=== PATIENT | female | born 1935 | race Caucasian/White ===

== ENCOUNTER → 2017-01-18 | Day surgery (SDC) | payer OTHER ==
[~2017-01-18] MED LIST: LACTATED RINGER'S 1000 ML INJ 1,000 ML ONE; LIDOCAINE 1%/EPINEPHrine 1:100,000 SOLN 20 ML VIAL ONE; ONDANSETRON HCL 4 MG/2 ML VIAL IV PUSH ONE; PROPOFOL 500 MG/50 ML BTL IV ONE; ceFAZolin INJ 1,000 MG VIAL ONE
--- NOTE | 2017-01-18 15:55 | TN ---
cc: ALONDRA HALL M.D., DAVID G. M.D. DATE OF SURGERY: 01/18/2017 PREOPERATIVE DIAGNOSIS Ductal carcinoma in situ right breast, epidermal inclusion cyst right breast. POSTOPERATIVE DIAGNOSES Ductal carcinoma in situ right breast, epidermal inclusion cyst right breast. PROCEDURE Excision right breast epidermal inclusion cyst 1 cm diameter, with two layer closure. Right breast needle localized lumpectomy, hidden scar technique. SURGEON Dr. Harry Pike ANESTHESIA: General, TIVA, plus 1% lidocaine with epinephrine. INDICATIONS This is a very pleasant 81-year-old woman who was sent to me in consultation by Dr. Hall for evaluation of ductal carcinoma in situ of the right breast. Stereotactic biopsy demonstrated DCIS with comedo necrosis. She was desirous of lumpectomy and decline the opportunity have a sentinel lymph node biopsy. She incidentally had a 1 cm palpable epidermal inclusion cyst in the upper inner right breast that she wished to have excised. INTRAOPERATIVE FINDINGS Epidermal inclusion cyst excised in its entirety and sent to pathology. Right breast lumpectomy specimen sent to imaging where Dr. Espinosa indicated the clip was in the center of the specimen and the specimen was sent to pathology. ESTIMATED BLOOD LOSS: Less than 5 mL DESCRIPTION OF PROCEDURE IN DETAIL The patient identified as Dorothea Myers, taken to the operating room, placed in supine position, following localization of needle of the right breast. Sequential compression devices were placed on bilateral lower extremities. Following induction of adequate IV sedation anesthesia the patient's right breast was prepped and draped in the usual sterile fashion with Betadine. A time-out procedure was performed. Following completion of time-out procedure to everyone's satisfaction within the room, proposed small elliptical incision around the epidermal inclusion cyst was made with a marking pen. Additionally a proposed incision along the medial periareolar edge was made with a marking pen. Local anesthetic was placed and the elliptical incision was carried out with scalpel. The tissue was removed in its entirety using the scalpel. Small bleeding points controlled with electrocautery. The wound was closed in two layers with 3-0 Vicryl and 4-0 Monocryl, and dressed with Mastisol half inch brown Steri-Strips and a Tegaderm with Telfa. Attention was then turned to the needle localized lumpectomy. Local anesthetic was placed beneath the periareolar incision and around the area of proposed dissection. Incision was carried out with scalpel and hemostasis controlled with electrocautery. Dissection continued down into the breast tissue and then towards the localization needle medially which was divided to the level of the skin brought into the surgical wound. A cylinder of tissue around the localization needle was then excised from surrounding breast tissue all way beyond the localization needle tip. The specimen was removed in its entirety, marked with a short stitch superior anterior and a long stitch lateral posterior, sent to imaging and then to pathology with the above mentioned results. The wound was irrigated copiously with saline. Small bleeding points were controlled with electrocautery. Palpitation demonstrated no palpably abnormal tissue. There was also no visually abnormal tissue within the wound. The wound was approximated with two 3-0 Vicryl sutures. 3-0 Vicryl was then placed in the deep dermis and subcutaneous fatty tissue and skin approximated with 4-0 Monocryl subcuticular sutures. About 8 cc of local anesthetic was placed within the lumpectomy cavity prior to closure. The wound was dressed Mastisol and half inch brown Steri-Strips, gauze and Tegaderm. The patient tolerated the procedure without apparent complication. Sponge, needle and instrument counts correct at the end of the case. MD TERESE Hopper/CELIA /3:00 PM /3:37 PM
== END | disposition home or self-care (01) ==
LOC: ESDC 10:02
PROVIDERS: ATTEND Surgery Trauma Surgery
DX: D05.11 Intraductal carcinoma in situ of right breast (principal); L72.0 Epidermal cyst
CPT/HCPCS: 00400; 19120; 19125; 88304; 88307; J0690; J2405; J3010; J7120; 88361

== ENCOUNTER → 2017-02-13 | Day surgery (SDC) | payer OTHER ==
[~2017-02-13] MED LIST changes: +ceFAZolin 2 GM PREMIX 50 ML ONE; -ceFAZolin INJ 1,000 MG VIAL ONE
--- NOTE | 2017-02-13 10:15 | TN ---
cc: GREGORY ALEJANDRO M.D., DAVID G. M.D. NIEWALD, ANDREW J. M.D. DATE OF SURGERY: 02/13/2017 PREOPERATIVE DIAGNOSIS Right breast ductal carcinoma in situ with close anterior and posterior margins. POSTOPERATIVE DIAGNOSES Right breast ductal carcinoma in situ with close anterior and posterior margins. PROCEDURE Re-excision right breast lumpectomy with removal of anterior and posterior margins. SURGEON Dr. Harry Pike ANESTHESIA TIVA with 1% lidocaine with epinephrine. INDICATION A very pleasant 81-year-old woman who recently underwent right breast needle-localized lumpectomy for ductal carcinoma in situ. She was found to have 3.1 cm of DCIS with a very close, less than 1 mm, anterior and posterior margin. She is desirous of avoiding radiation therapy and therefore has elected to proceed with re-excision for wider margins followed by hormone therapy. INTRAOPERATIVE FINDINGS At least 1-2 cm margins anterior and posterior. The anterior margin suture richards new anterior medial margin. The posterior margin suture richards the new posterior medial margin. ESTIMATED BLOOD LOSS Minimal. DESCRIPTION OF PROCEDURE IN DETAIL The patient was identified as Dorothea Myers, taken to the operating room and placed in supine position. Sequential compression devices were placed on bilateral lower extremities. Following IV sedation by Anesthesia the right breast was prepped and draped in usual sterile fashion with Betadine. A timeout procedure was performed. Following completion of the timeout procedure to everyone's satisfaction within the room, the area of previous incision along the medial periareolar areolar edge was infiltrated with local anesthetic and the old incision opened with a scalpel. Hemostasis was controlled with cautery. Dissection continued posteriorly into the lumpectomy cavity where seromatous fluid was suctioned out. An anterior margin was then from surrounding breast tissue using electrocautery, marked with a suture and sent to pathology. Similarly, the posterior margin was excised from surrounding tissues, marked with a silk suture as discussed previously and sent to pathology. The wound was copiously irrigated with saline. Small bleeding points were controlled with electrocautery. About 8 cc of local anesthetic was placed in the deep lumpectomy cavity and more superficial breast tissue was approximated with interrupted 3-0 Vicryl suture. The incision was then closed with interrupted 3-0 Vicryl suture. The skin was approximated with running 4-0 Monocryl subcuticular sutures and dressings were applied with Mastisol, half-inch brown Steri-Strips, gauze and Tegaderm. The patient tolerated the procedure without apparent complication. Sponge, needle and instrument counts were correct at the end of the case. MD TERESE Hopper/MARQUIS /9:59 AM /10:05 AM
== END | disposition home or self-care (01) ==
LOC: ESDC 07:43
PROVIDERS: ATTEND Surgery Trauma Surgery
DX: D05.11 Intraductal carcinoma in situ of right breast (principal)
CPT/HCPCS: 00400; 19301; 88307; J0690; J2405; J3010; J7120